=== PATIENT | male | born 1985 | race Caucasian/White ===

== ENCOUNTER 2016-09-28 14:24 | Emergency (ER) | payer OTHER ==
[2016-09-28 14:34] VITALS: BP 158/99; PULSE 95; TEMP 98; BMI 24.3
[2016-09-28] MEDS ORDERED: KETOROLAC TROMETHAMINE 60 MG/2 ML VIAL IM ONE (15:54)
--- NOTE | 2016-09-28 15:54 | PDOC ---
History of Present Illness - General Chief Complaint: Injury Stated Complaint: PAIN Time Seen by Provider: 09/28/16 14:37 History Source: Patient, Hook Up Used (Hook Up # [id number] and [id number] used for translation) - History of Present Illness Initial Comments: 09/28/16 15:12 Pt. is a 31 y/o male right hand dominant, who presents with a complaint of R shoulder pain x2 weeks. Pt. states he was playing soccer and got "thrown down" by another player. He landed hard on his R shoulder. States he cannot lift his arm, but can move his fingers. Denies numbness and tingling or weakness of the arm. He has not taken anything for pain. Denies fevers, chills, n/v/d. Past History - Travel Traveled outside of the country in the last 30 days: No Close contact w/someone who was outside of country & ill: No - Past Medical History Allergies/Adverse Reactions: Allergies Allergy/AdvReac Type Severity Reaction Status Date / Time No Known Allergies Allergy Verified 09/28/16 14:32 Home Medications: Ambulatory Orders Oxycodone HCl/Acetaminophen [Percocet 5-325 mg Tablet] 1 tab PO Q6H #20 tablet MDD 4 09/28/16 Other medical history: denies - Immunization History Immunization Up to Date: Yes - Psycho/Social/Smoking Cessation Hx Suicidal Ideation: No Smoking History: Never smoked Hx Alcohol Use: No Drug/Substance Use Hx: No Review of Systems - Review of Systems Able to Perform ROS?: Yes Is the patient limited Tajik proficient: No Constitutional: Yes: Fever. No: Chills, Diaphoresis, Weakness Musculoskeletal: Yes: Joint Pain, Joint Swelling, Joint Stiffness Integumentary: No: Bruising Neurological: No: Numbness, Paresthesia, Tingling, Weakness, Dizziness *Physical Exam - Vital Signs Last Vital Signs Temp Pulse Resp BP Pulse Ox 98.0 F 95 H 18 158/99 97 09/28/16 14:32 09/28/16 14:32 09/28/16 14:32 09/28/16 14:32 09/28/16 14:32 - Physical Exam General Appearance: Yes: Nourished, Appropriately Dressed. No: Apparent Distress Comments:: 09/28/16 15:37 radial pulses 2+ and regular b/l Extremity: positive: Normal Capillary Refill, Other (Neurovascularly intact). negative: Normal Inspection (Notch visible and palpated over midshaft of the R clavicle), Normal Range of Motion (Pain with supination and pronation. Can raise R arm to 100 degrees. (-) drop arm test, negative empty can test) Integumentary: positive: Normal Color, Dry, Warm, Swelling (over R midshaft of clavicle) Neurologic: positive: director of nursing II-XII NML intact, Fully Oriented, Alert, Normal Mood/ Affect, Normal Response, Motor Strength /5 Medical Decision Making - Medical Decision Making 09/28/16 15:59 Pt. c/o left shoulder pain. Exam shows a notch over the clavicle. Will order x- ray to r/o clavicle fracture. 09/28/16 16:46 X-ray shows a displaced midshaft fractured clavicle. Will give a shoulder immobilizer at this time and refer to ortho. Will prescribe percocet for pain. Discharge home at this time *DC/Admit/Observation/Transfer Diagnosis at time of Disposition: Clavicle fracture, shaft Qualifiers: Encounter type: initial encounter Fracture type: closed Fracture alignment: displaced Laterality: left Qualified Code(s): S42.022A - Displaced fracture of shaft of left clavicle, initial encounter for closed fracture - Discharge Dispostion Disposition: HOME Condition at time of disposition: Stable Admit: No - Prescriptions Prescriptions: Oxycodone HCl/Acetaminophen [Percocet 5-325 mg Tablet] 1 tab PO Q6H #20 tablet MDD 4 - Referrals Referrals: Live Hernandez MD [Staff Physician] - - Patient Instructions Printed Discharge Instructions: DI for Clavicle Fracture-Adult Additional Instructions: Tiene eb fractura de clavcula. Usted fue colocado [facility] Mantenga el brazo en el cabestrillo hasta que pueda zari al doctor orthapedic. Usted tiene eb referencia en barlow trabajo de papel. Le prescribieron percocet para el dolor. Usted puede casi eb pestaa cada seis horas. No maneje despus de casi rosita medicamento. Usted no debe trabajar hasta que [facility]. Vuelva al departamento de emergencias si tiene dolor en el brazo, tiene entumecimiento u hormigueo, o si tiene algn cambio en augie sntomas. Print Language: EGYPTIAN - Post Discharge Activity Work/School Note: Back to Work
[2016-09-28] MEDS ORDERED: KETOROLAC TROMETHAMINE 60 MG/2 ML VIAL ONE (15:58)
== END 2016-09-28 17:33 | disposition home or self-care (01) ==
LOC: JERFT 14:24
PROC: 2W39XYZ Immobilization of Left Upper Extremity using Other Device (ICD-10-PCS; principal; 2016-09-28)
PROC: 3E0233Z Introduction of Anti-inflammatory into Muscle, Percutaneous Approach (ICD-10-PCS; 2016-09-28)
DX: S42.022A Displaced fracture of shaft of left clavicle, initial encounter for closed fracture (principal); W03.XXXA Other fall on same level due to collision with another person, initial encounter; Y93.66 Activity, soccer; Y92.322 Soccer field as the place of occurrence of the external cause; Y99.8 Other external cause status
CPT/HCPCS: 73000-TC-LT; 73030-TC-LT; 99281-25

== ENCOUNTER 2016-11-18 16:11 | Emergency (ER) | payer OTHER ==
[2016-11-18 16:15] VITALS: BP 128/90; PULSE 87; TEMP 98; BMI 24.9
[2016-11-18] MEDS ORDERED: traMADol HCL 50 MG TABLET PO ONE (16:47)
[2016-11-18] MEDS ORDERED: traMADol HCL 50 MG TABLET ONE (16:49)
--- NOTE | 2016-11-18 16:52 | PDOC ---
History of Present Illness - General Chief Complaint: Pain Stated Complaint: PAIN shoulder, clavicle fx 2 months ago Time Seen by Provider: 11/18/16 16:31 History Source: Patient - History of Present Illness Occurred: reports: other Upper Extremity Pain Location: left: shoulder Past History - Past Medical History Allergies/Adverse Reactions: Allergies Allergy/AdvReac Type Severity Reaction Status Date / Time No Known Allergies Allergy Verified 11/18/16 16:15 Home Medications: Ambulatory Orders Ibuprofen [Motrin -] 600 mg PO QID #28 tablet 11/18/16 Other medical history: denies - Immunization History Immunization Up to Date: Yes - Psycho/Social/Smoking Cessation Hx Suicidal Ideation: No Smoking History: Never smoked Information on smoking cessation initiated: No Hx Alcohol Use: No Drug/Substance Use Hx: No Substance Use Type: None Review of Systems - Review of Systems Constitutional: No: Chills, Fever Musculoskeletal: Yes: Joint Pain. No: Joint Swelling *Physical Exam - Vital Signs Last Vital Signs Temp Pulse Resp BP Pulse Ox 98 F 87 18 128/90 99 11/18/16 16:13 11/18/16 16:13 11/18/16 16:13 11/18/16 16:13 11/18/16 16:13 - Physical Exam General Appearance: Yes: Appropriately Dressed. No: Apparent Distress HEENT: positive: Normal Voice Neck: positive: Supple Respiratory/Chest: negative: Respiratory Distress Extremity: positive: Normal Inspection, Other (sling in place to LUE) Integumentary: positive: Dry, Warm Neurologic: positive: Fully Oriented, Alert, Normal Mood/Affect Medical Decision Making - Medical Decision Making 11/18/16 16:47 31 yo M, dx w/ displaced clavicular fx 2 months ago at [facility], has since f/u with ortho who performed f/u XR and told pt he might need surgery as fx not helaing well. Pt has since received emergency medicaid but states MD told him that surgery would not be covered under insurance as MD is private. Pt requesting another ortho referral. Continues to have some pain. Well mateo in NAD w/ sling to LUE. Pt given ortho f/u at [facility] *DC/Admit/Observation/Transfer Diagnosis at time of Disposition: Shoulder pain, left Qualifiers: Chronicity: unspecified Qualified Code(s): M25.512 - Pain in left shoulder - Discharge Dispostion Disposition: HOME Condition at time of disposition: Good - Prescriptions Prescriptions: Ibuprofen [Motrin -] 600 mg PO QID #28 tablet - Patient Instructions Additional Instructions: Por favor, pngase en contacto con la clnica de [facility] en [facility] [address] en [address], [place] [address] Telf[place]:
== END 2016-11-18 17:04 | disposition home or self-care (01) ==
LOC: JERFT 16:11
DX: M25.512 Pain in left shoulder (principal)
CPT/HCPCS: 99281-25